=== PATIENT | male | born 1950 | race Caucasian/White ===

== ENCOUNTER 2020-07-28 12:27 | Day surgery (SDC) | payer OTHER ==
[~2020-07-28] VITALS: Ht 172.7 cm; Wt 96.2 kg
[~2020-07-28 12:27] MED LIST: ASPI325 PO; ENAL5 PO; GLIP5 PO; INSULANI SC; INSULANPEN; IRBE150; KETO10 PO; METF500 PO; METO25ER PO; OXYACE5T PO; OXYACE7.5T PO; PRAV10 PO; PROM25 PO; SILD50TA; TAMS.4ER PO
== END 2020-07-28 14:00 | disposition home or self-care (01) ==
LOC: ORSCSDS 12:27
PROVIDERS: Internal Medicine Gastroenterology
PROC: 0DBM8ZX Excision of Descending Colon, Via Natural or Artificial Opening Endoscopic, Diagnostic (ICD-10-PCS; principal; 2020-07-28 13:45)
DX: Z12.11 Encounter for screening for malignant neoplasm of colon (principal); Z86.010 Personal history of colon polyps; D12.4 Benign neoplasm of descending colon; K57.30 Diverticulosis of large intestine without perforation or abscess without bleeding; K64.8 Other hemorrhoids; I25.10 Atherosclerotic heart disease of native coronary artery without angina pectoris; I10 Essential (primary) hypertension; E11.9 Type 2 diabetes mellitus without complications; G47.33 Obstructive sleep apnea (adult) (pediatric); F17.210 Nicotine dependence, cigarettes, uncomplicated; Z79.84 Long term (current) use of oral hypoglycemic drugs; Z79.899 Other long term (current) drug therapy; Z79.82 Long term (current) use of aspirin
CPT/HCPCS: 82947; 88305; J2704; J7120

== ENCOUNTER 2021-12-26 09:06 | Day surgery (SDC) | payer OTHER ==
[~2021-12-26] VITALS: Ht 172.7 cm; Wt 93.5 kg
--- NOTE | 2021-12-26 09:54 | NUR ---
12/26/21 0954 Jacquelin Hawthorne AT 0946 PLEELMOET AT 0948
--- NOTE | 2021-12-26 11:06 | NUR ---
12/26/21 1106 CARLITO FRY PT IN SVT. INFORMED THAT WAS ALSO RHYTHM IN OR. RAN STRIP- STILL IN SVT. TAKES MED FOR THIS. INFORMED THAT NOTHING NEEDS TO BE DONE FOR THIS DR. PALOMO IS AWARE AND NOTHING NEEDED PER EFRAIN
== END 2021-12-26 11:21 | disposition home or self-care (01) ==
LOC: ORSCSDS 09:06
PROVIDERS: Ophthalmology
PROC: 08RK3JZ Replacement of Left Lens with Synthetic Substitute, Percutaneous Approach (ICD-10-PCS; principal; 2021-12-26 10:30)
DX: H25.12 Age-related nuclear cataract, left eye (principal); E11.9 Type 2 diabetes mellitus without complications; H18.512 Endothelial corneal dystrophy, left eye; J44.9 Chronic obstructive pulmonary disease, unspecified; I10 Essential (primary) hypertension; I25.2 Old myocardial infarction; Z79.82 Long term (current) use of aspirin; Z79.84 Long term (current) use of oral hypoglycemic drugs; Z79.4 Long term (current) use of insulin; Z79.899 Other long term (current) drug therapy
CPT/HCPCS: 82947; J2001; J2250; J3010; J3301; J7040; V2632

== ENCOUNTER 2022-03-16 16:37 | Inpatient (IN) | payer OTHER ==
[~2022-03-16] VITALS: Ht 172.7 cm; Wt 93.5 kg
[~2022-03-16 16:37] MED LIST changes: +ENAL10 PO; -ENAL5 PO; -INSULANPEN; +INSULANPEN SC; -PRAV10 PO; +PRAVASTATIN SOD10 MG PO
[2022-03-16 17:14] LABS: BASOPHILS ABSOLUTE AUTO 0.02 K/mm3 (0.00-0.23); BASOPHILS PERCENT AUTO 0 % (0-2); EOSINOPHILS ABSOLUTE AUTO 0.04 K/mm3 (0.00-0.68); EOSINOPHILS PERCENT AUTO 0 % (0-6); Hemoglobin 16.7 g/dL (13.5-17.5); IMMATURE GRAN ABSOLUTE AUTO 0.05 K/mm3 (0.00-0.10); IMMATURE GRAN PERCENT AUTO 1 % (0-1); LYMPHOCYTES ABSOLUTE AUTO 1.18 K/mm3 (0.84-5.20); LYMPHOCYTES PERCENT AUTO 13 % (21-46); MONOCYTES ABSOLUTE AUTO 1.47 K/mm3 (0.16-1.47); MONOCYTES PERCENT AUTO 16 % (4-13); Mean Corpuscular HGB 34.4 pg (26.0-34.0); Mean Corpuscular HGB Conc 34.1 g/dL (31.5-36.5); Mean Corpuscular Volume 101 fL (80-100); Mean Platelet Volume 8.3 fL (9.1-12.4); NEUTROPHILS ABSOLUTE AUTO 6.47 K/mm3 (1.96-9.15); NEUTROPHILS PERCENT AUTO 70 % (41-73); Platelet Count 243 K/mm3 (150-400); RDW Coefficient Variation 13.1 % (11.7-14.2); RDW Standard Deviation 48.9 fL (35.1-46.3); Red Blood Cell Count 4.86 M/mm3 (4.30-5.90); White Blood Cell Count 9.23 K/mm3 (4.00-11.30)
[2022-03-16 17:33] LABS: Albumin, Blood 3.2 g/dL (3.4-5.0); Albumin/Globulin Ratio 0.8 (0.8-1.8); Bilirubin, Total 0.4 mg/dL (0.1-1.0); Bun/Creatinine Ratio 25.9 (12.0-20.0); Creatinine, Blood 1.85 mg/dL (0.60-1.20); Globulin, Blood 4.1 g/dL (2.2-4.0); Potassium, Blood 4.2 mmol/L (3.5-5.5); Total Protein, Blood 7.3 g/dL (6.4-8.2)
[2022-03-16 18:13] LABS: Source, Urine Clean Catch
[2022-03-16 18:17] LABS: Appearance, Urine Clear (Clear); Bilirubin, Urine Neg (Neg); Blood, Urine 3+ (Neg); Glucose Qualitative, Urine 4+ (Neg); Ketones, Urine Neg (Neg); Leukocyte Esterase, Urine Neg (Neg); Nitrite, Urine Neg (Neg); Protein, Urine 2+ (Neg); Specific Gravity, Urine 1.015 (1.003-1.022); Urobilinogen, Urine NORM (Normal)
[2022-03-16 18:26] LABS: Color, Urine Pale Yellow (P-Yellow)
[2022-03-16 18:30] LABS: Hyaline Casts 0-2 /lpf (0-2)
[2022-03-16 18:31] LABS: Amorphous Light (0-Heavy); Bacteria Rare /hpf; Red Blood Cells, Urine 0-2 /hpf (0-2); Squamous Epithelial Cells Not Seen /hpf (Few); White Blood Cells, Urine 0-2 /hpf (0-5)
[2022-03-16] MEDS ORDERED: FARXIGA10 MG PO (18:44)
[2022-03-16] MEDS ORDERED: EZETIMIBE10 M6 PO (18:44)
[2022-03-16 20:12] LABS: Influenza B, PCR NEGATIVE (NEGATIVE); Resp Syncytial Virus, PCR NEGATIVE (NEGATIVE); SARS-Cov-2 (COVID-19) PCR, MMC NEGATIVE (NEGATIVE)
[2022-03-16 21:08] LABS: Influenza A, PCR POSITIVE (NEGATIVE)
--- NOTE | 2022-03-16 23:40 | NUR ---
PATIENT IS A NEW ADMIT FROM THE ED. AXOX 4 AND SBA TRANSFER FROM [facility] TO BED. ON 2L O2 NC AND RA BASELINE. SPOUSE PRESENT ON ADMIT TO HELP WITH MEDICATON LIST AND THAN LEFT FOR EVENING. SHE REPORTS WILL BE BACK IN AM. DENIES CHEST PAIN AND N/V. RT IN FOR BREATHING TX. PATIENT SKIN SUN BURNT FROM RECENT [place] TRIP WITH SPOUSE. ORIENTED TO ROOM AND CALL LIGHT SYSTEM. SBA TO BR. REPORTS WILL WATCH TV BEFORE TRYING TO SLEEP. NS STARTED AT 100 mL/HR. WCTM.
--- NOTE | 2022-03-17 04:03 | NUR ---
SHIFT SUMMARY PATIENT HAD NO ACUTE CHANGES. AXOX 4 AND SBA TO BR. ON 2L O2 NC AND RA BASELINE. REFUSED CPAP WHEN ASKED BY RT. RECEIVED BREATHING TX. PIV REMAINS INTACT. NS INFUSING AT 100 mL/HR. IV SOLU-MEDROL GIVEN PER EMAR. CBG 200 Q4 CHECK. DENIES PAIN AND N/V. DROPLET PRECAUTIONS FLU+. PATIENT REPORTS SUN BURN FROM RECENT TRIP TO [facility]. VSS/AFEBRILE. CALL LIGHT IN REACH. BED IN LOWEST POSITION. WILL CONTINUE TO MONITOR UNTIL DAY SHIFT NURSE ASSUMES CARE.
[2022-03-17 04:33] LABS: Hemoglobin 15.8 g/dL (13.5-17.5); Mean Corpuscular HGB Conc 33.6 g/dL (31.5-36.5); Mean Corpuscular Volume 101 fL (80-100); Mean Platelet Volume 8.5 fL (9.1-12.4); Platelet Count 219 K/mm3 (150-400); RDW Coefficient Variation 13.2 % (11.7-14.2); RDW Standard Deviation 49.4 fL (35.1-46.3); Red Blood Cell Count 4.65 M/mm3 (4.30-5.90); White Blood Cell Count 7.81 K/mm3 (4.00-11.30)
[2022-03-17 04:49] LABS: Bun/Creatinine Ratio 26.9 (12.0-20.0); Calcium, Blood 8.4 mg/dL (8.5-10.1); Creatinine, Blood 1.67 mg/dL (0.60-1.20); Magnesium, Blood 2.4 mg/dL (1.6-2.4); Potassium, Blood 4.9 mmol/L (3.5-5.5)
--- NOTE | 2022-03-17 17:10 | NUR ---
PT AOX4 AND COOPERATIVE OF CARE. NO DISTESS NOTED CONTINUES ON 2L NASAL CANULA. PT ABLE TO GET SHOWER TODAY WITH TO ASSIST. PT RESTING IN BED MOST OF THE DAY WILL CONTINUE TO MONITOR. CALL LIGHT WITHIN REACH.
--- NOTE | 2022-03-18 04:02 | NUR ---
SHIFT SUMMARY PATIENT HAD NO ACUTE CHANGES. AXOX 4 AND SBA TO BR. FLAT AFFECT. ON 2L O2 NC. SOB W/EXERTION. NOW USING CPAP AT NIGHT STATING 92% WITH 2L BLEED CONTINUOUS PULSE OXIMETRY. PIVS REMAIN INTACT. CBG 347. SCHEDULE IV SOLU-MEDROL. RT IN FOR BREATHING TX. REPORTED COUGH X ONE AND TUSSIONEX 5 mL GIVEN. VSS/AFEBRILE. DENIES CHEST PAIN AND N/V. CALL LIGHT IN REACH. BED IN LOWEST POSITION. WILL CONTINUE TO MONITOR UNTIL DAY SHIFT NURSE ASSUMES CARE.
--- NOTE | 2022-03-19 05:03 | NUR ---
SHIFT SUMMARY NOC PT A/O X 4 PLEASANT AND COOPERATIVE TO CARE. NO ACUTE CHANGES TO REPORT. PT ON 4L/NC WITH SPO2 > 92 %. PT HS CBG WAS 287 PT GIVEN INSULIN PE S/S. PT RECEIVED BREATHING TREATMENT FROM RT. PT HAD A FEW EPISODES OF COUGHING WHICH RAISED HR TO 130'S BUT QUICKLY RETURNED TO BASELINE. PT IS CURRENTLY IN RESTING IN BED WITH CPAP WITH 2L BLEED IN SPO2 > 92% NOTED, BED IN LOWEST POSITION, AND CALL LIGHT WITHIN REACH. PT EXPECTED TO DC TODAY. WCTM.
[2022-03-19 05:26] LABS: BASOPHILS ABSOLUTE AUTO 0.02 K/mm3 (0.00-0.23); BASOPHILS PERCENT AUTO 0 % (0-2); EOSINOPHILS PERCENT AUTO 0 % (0-6); Hematocrit 44.8 % (37.0-53.0); Hemoglobin 15.2 g/dL (13.5-17.5); IMMATURE GRAN ABSOLUTE AUTO 0.16 K/mm3 (0.00-0.10); IMMATURE GRAN PERCENT AUTO 1 % (0-1); LYMPHOCYTES ABSOLUTE AUTO 0.99 K/mm3 (0.84-5.20); LYMPHOCYTES PERCENT AUTO 8 % (21-46); MONOCYTES ABSOLUTE AUTO 0.78 K/mm3 (0.16-1.47); MONOCYTES PERCENT AUTO 6 % (4-13); Mean Corpuscular HGB 34.2 pg (26.0-34.0); Mean Corpuscular HGB Conc 33.9 g/dL (31.5-36.5); Mean Corpuscular Volume 101 fL (80-100); Mean Platelet Volume 8.5 fL (9.1-12.4); NEUTROPHILS ABSOLUTE AUTO 10.31 K/mm3 (1.96-9.15); NEUTROPHILS PERCENT AUTO 84 % (41-73); Platelet Count 270 K/mm3 (150-400); RDW Coefficient Variation 12.9 % (11.7-14.2); RDW Standard Deviation 48.3 fL (35.1-46.3); Red Blood Cell Count 4.45 M/mm3 (4.30-5.90); White Blood Cell Count 12.26 K/mm3 (4.00-11.30)
[2022-03-19 05:28] LABS: Bun/Creatinine Ratio 24.4 (12.0-20.0); Calcium, Blood 8.2 mg/dL (8.5-10.1); Creatinine, Blood 1.64 mg/dL (0.60-1.20); Potassium, Blood 5.2 mmol/L (3.5-5.5)
[2022-03-19] MEDS ORDERED: AMLO5 PO (11:28)
[2022-03-19] MEDS ORDERED: OSEL75CA PO (11:29)
[2022-03-19] MEDS ORDERED: PRED20 PO (11:30)
[2022-03-19] MEDS ORDERED: ALBU90OI INH (11:31)
[2022-03-19] MEDS ORDERED: Aspir 8181 MG PO (11:31)
[2022-03-19] MEDS ORDERED: IPRAT-ALBUT 0.5-3 ML INH (11:33)
[2022-03-19] MEDS ORDERED: SYMBICORT 160-4.6 GM INH (11:33)
--- NOTE | 2022-03-19 12:48 | NUR ---
DISCHARGE SUMMARY DISCHARGE, FOLLOWUP, AND MEDICATION INSTRUCTIONS GIVEN TO PATIENT. PT VOICED COMPLETE UNDERSTANDING AND HAS NO QUESTIONS AT THIS TIME. IVS REMOVED WITH CATHETER TIP INTACT. PT WAITING FOR RIDE, WILL CONTINUE TO MONITOR. CALL LIGHT WITHIN REACH.
== END 2022-03-19 13:21 | disposition home or self-care (01) | DRG 193 ==
LOC: ER 16:37 → MEDS 16:38
PROVIDERS: Internal Medicine; Nurse Practitioner Acute Care; Student in an Organized Health Care Education/Training Program; ADMIT Internal Medicine
PROC: 5A09357 Assistance with Respiratory Ventilation, Less than 24 Consecutive Hours, Continuous Positive Airway Pressure (ICD-10-PCS; principal; 2022-03-17)
DX: J10.1 Influenza due to other identified influenza virus with other respiratory manifestations (principal); G92.8 Other toxic encephalopathy; J96.01 Acute respiratory failure with hypoxia; J96.02 Acute respiratory failure with hypercapnia; J44.1 Chronic obstructive pulmonary disease with (acute) exacerbation; N17.9 Acute kidney failure, unspecified; F17.210 Nicotine dependence, cigarettes, uncomplicated; E86.0 Dehydration; R94.31 Abnormal electrocardiogram [ECG] [EKG]; I45.10 Unspecified right bundle-branch block; E11.649 Type 2 diabetes mellitus with hypoglycemia without coma; N18.30 Chronic kidney disease, stage 3 unspecified; E11.22 Type 2 diabetes mellitus with diabetic chronic kidney disease; I25.10 Atherosclerotic heart disease of native coronary artery without angina pectoris; G47.33 Obstructive sleep apnea (adult) (pediatric); E78.5 Hyperlipidemia, unspecified; I12.9 Hypertensive chronic kidney disease with stage 1 through stage 4 chronic kidney disease, or unspecified chronic kidney disease; Z20.822 Contact with and (suspected) exposure to COVID-19; Z99.81 Dependence on supplemental oxygen; Z79.84 Long term (current) use of oral hypoglycemic drugs; Z79.82 Long term (current) use of aspirin; Z79.4 Long term (current) use of insulin; I25.2 Old myocardial infarction; Z79.899 Other long term (current) drug therapy; Z87.442 Personal history of urinary calculi; Z98.890 Other specified postprocedural states; Z95.1 Presence of aortocoronary bypass graft
CPT/HCPCS: 0241U; 36415; 71045; 80048; 80053; 81001; 82947; 83735; 85025; 85027; 93005; 93010; 94640; 94644; 94645; 94660; 94664; 94760; 94761; 94762; 96365; 96372; 96375; 96376; 99285-25; A9270; G0378; J1650; J1815; J2930; J3475; J7030; J7512; J7799

== ENCOUNTER 2023-02-01 15:14 | Inpatient (IN) | payer OTHER ==
[~2023-02-01] VITALS: Ht 172.7 cm; Wt 97.5 kg
[~2023-02-01 15:14] MED LIST changes: +ALBU90OI INH; +AMLO5 PO; +Aspir 8181 MG PO; +EZETIMIBE10 M6 PO; +FARXIGA10 MG PO; +IPRAT-ALBUT 0.5-3 ML INH; +OSEL75CA PO; +PRED20 PO; +SYMBICORT 160-4.6 GM INH
[2023-02-01 15:37] LABS: BASOPHILS ABSOLUTE AUTO 0.02 K/mm3 (0.00-0.23); BASOPHILS PERCENT AUTO 0 % (0-2); EOSINOPHILS ABSOLUTE AUTO 0.01 K/mm3 (0.00-0.68); EOSINOPHILS PERCENT AUTO 0 % (0-6); Hematocrit 52.7 % (37.0-53.0); Hemoglobin 17.6 g/dL (13.5-17.5); IMMATURE GRAN ABSOLUTE AUTO 0.03 K/mm3 (0.00-0.10); IMMATURE GRAN PERCENT AUTO 0 % (0-1); LYMPHOCYTES ABSOLUTE AUTO 1.42 K/mm3 (0.84-5.20); LYMPHOCYTES PERCENT AUTO 17 % (21-46); MONOCYTES ABSOLUTE AUTO 0.87 K/mm3 (0.16-1.47); MONOCYTES PERCENT AUTO 11 % (4-13); Mean Corpuscular HGB Conc 33.4 g/dL (31.5-36.5); Mean Corpuscular Volume 102 fL (80-100); Mean Platelet Volume 8.5 fL (9.1-12.4); NEUTROPHILS ABSOLUTE AUTO 5.87 K/mm3 (1.96-9.15); NEUTROPHILS PERCENT AUTO 71 % (41-73); Platelet Count 265 K/mm3 (150-400); RDW Coefficient Variation 13.4 % (11.7-14.2); RDW Standard Deviation 50.4 fL (35.1-46.3); Red Blood Cell Count 5.17 M/mm3 (4.30-5.90); White Blood Cell Count 8.22 K/mm3 (4.00-11.30)
[2023-02-01] MEDS ORDERED: GLIP5 (15:37)
[2023-02-01 15:55] LABS: Albumin, Blood 3.9 g/dL (3.4-5.0); Albumin/Globulin Ratio 1.1 (0.8-1.8); Bilirubin, Total 0.9 mg/dL (0.1-1.0); Bun/Creatinine Ratio 22.9 (12.0-20.0); Calcium, Blood 8.8 mg/dL (8.5-10.1); Creatinine, Blood 1.44 mg/dL (0.60-1.20); Globulin, Blood 3.6 g/dL (2.2-4.0); Potassium, Blood 4.2 mmol/L (3.5-5.5); Total Protein, Blood 7.5 g/dL (6.4-8.2)
[2023-02-01 16:19] LABS: Base Excess Venous 3.4 mmol/L; Bicarbonate Venous 24.9 mmol/L (24.0-30.0); PCO2 Venous 62.5 mmHg (38-42); pH Blood Venous 7.29 (7.34-7.37)
[2023-02-01 16:55] LABS: Influenza A, PCR NEGATIVE (NEGATIVE); Influenza B, PCR NEGATIVE (NEGATIVE); Resp Syncytial Virus, PCR NEGATIVE (NEGATIVE); SARS-Cov-2 (COVID-19) PCR, MMC NEGATIVE (NEGATIVE)
[2023-02-01 19:53] LABS: Base Excess Venous 6.5 mmol/L; Bicarbonate Venous 25.9 mmol/L (24.0-30.0); PCO2 Venous 71.2 mmHg (38-42)
[2023-02-01 19:54] LABS: pH Blood Venous 7.28 (7.34-7.37)
[2023-02-01] MEDS ORDERED: METO100ER PO (20:22)
[2023-02-01] MEDS ORDERED: EZET10 PO (20:23)
[2023-02-01 20:41] VITALS: BP 129/79
[2023-02-01 23:37] LABS: PCO2 Venous 65.5 mmHg (38-42); pH Blood Venous 7.29 (7.34-7.37)
[2023-02-01 23:38] LABS: Base Excess Venous 4.6 mmol/L; Bicarbonate Venous 26.2 mmol/L (24.0-30.0)
[2023-02-02 05:46] LABS: BASOPHILS ABSOLUTE AUTO 0.01 K/mm3 (0.00-0.23); BASOPHILS PERCENT AUTO 0 % (0-2); EOSINOPHILS ABSOLUTE AUTO 0.02 K/mm3 (0.00-0.68); EOSINOPHILS PERCENT AUTO 0 % (0-6); Hematocrit 47.9 % (37.0-53.0); Hemoglobin 15.7 g/dL (13.5-17.5); IMMATURE GRAN ABSOLUTE AUTO 0.01 K/mm3 (0.00-0.10); IMMATURE GRAN PERCENT AUTO 0 % (0-1); LYMPHOCYTES ABSOLUTE AUTO 1.16 K/mm3 (0.84-5.20); LYMPHOCYTES PERCENT AUTO 20 % (21-46); MONOCYTES ABSOLUTE AUTO 0.93 K/mm3 (0.16-1.47); MONOCYTES PERCENT AUTO 16 % (4-13); Mean Corpuscular HGB 34.1 pg (26.0-34.0); Mean Corpuscular HGB Conc 32.8 g/dL (31.5-36.5); Mean Corpuscular Volume 104 fL (80-100); Mean Platelet Volume 8.8 fL (9.1-12.4); NEUTROPHILS ABSOLUTE AUTO 3.71 K/mm3 (1.96-9.15); NEUTROPHILS PERCENT AUTO 64 % (41-73); Platelet Count 242 K/mm3 (150-400); RDW Coefficient Variation 13.6 % (11.7-14.2); RDW Standard Deviation 51.4 fL (35.1-46.3); Red Blood Cell Count 4.61 M/mm3 (4.30-5.90); White Blood Cell Count 5.84 K/mm3 (4.00-11.30)
[2023-02-02 06:10] LABS: Magnesium, Blood 1.9 mg/dL (1.6-2.4)
--- NOTE | 2023-02-02 06:22 | NUR ---
SUMMARY- PT ARRIVED TO ROOM IN NO DISTRESS. PT AMBULATORY WITH SOME SOB W/ EXERTION. PT HAS BEEN SLEEPING WITH CPAP DURING THE NIGHT. PT SPO2 > 90%. PT HAS BEEN VOIDING WELL. PT HAS BEEN ABLE TO SLEEP THIS SHIFT. CALL LIGHT IN REACH.
[2023-02-02 06:28] LABS: Alanine Aminotransfer (ALT/SGP 31 U/L (12-78); Albumin, Blood 3.3 g/dL (3.4-5.0); Albumin/Globulin Ratio 1.1 (0.8-1.8); Alk Phos 102 U/L (50-136); Anion Gap 4 mmol/L (6-16); Aspartate Aminotrans (AST/SGOT 23 U/L (12-37); Bilirubin, Total 0.7 mg/dL (0.1-1.0); Blood Urea Nitrogen 34 mg/dL (8-24); Bun/Creatinine Ratio 19.9 (12.0-20.0); CO2, Blood 31 mmol/L (21-32); Calcium, Blood 8.3 mg/dL (8.5-10.1); Chloride, Blood 105 mmol/L (98-108); Cholesterol 103 mg/dL (50-200); Creatinine, Blood 1.71 mg/dL (0.60-1.20); Globulin, Blood 3.1 g/dL (2.2-4.0); Glomerular Filtration Rate 42 (60-); Glucose, Blood 89 mg/dL (70-99); Potassium, Blood 4.1 mmol/L (3.5-5.5); Sodium, Blood 140 mmol/L (136-145); Total Protein, Blood 6.4 g/dL (6.4-8.2); Triglycerides 99 mg/dL (30-160)
[2023-02-02 07:38] VITALS: BP 139/74
[2023-02-02 13:06] LABS: Base Excess Venous 6.7 mmol/L; Bicarbonate Venous 27.1 mmol/L (24.0-30.0); PCO2 Venous 72.2 mmHg (38-42)
[2023-02-02 13:07] LABS: pH Blood Venous 7.28 (7.34-7.37)
--- NOTE | 2023-02-02 13:20 | NUR ---
CRITICAL PH RECIEVED IN VBG. CALL TO DR HERNANDEZ AND RECIEVED NEW ORDERS. CALL TO RT WITH NEW ORDERS
[2023-02-02 15:37] VITALS: BP 118/66
[2023-02-02 17:54] LABS: Base Excess Venous 8.3 mmol/L; Bicarbonate Venous 27.4 mmol/L (24.0-30.0); PCO2 Venous 76.7 mmHg (38-42)
[2023-02-02 17:55] LABS: pH Blood Venous 7.27 (7.34-7.37)
--- NOTE | 2023-02-02 18:10 | NUR ---
CALL FOR CRITICAL VALUE PH 7.27 AT 1756, DR HERNANDEZ NOTIFIED, ORDER FOR RT TO ADJUST PRESSURES OR IF NOT SUCCESSFUL, TRANSFER TO PCU AND RECHECK VBG AT 2330. DR HERNANDEZ WILL PUT ORDER IN FOR VBG. CALL PLACED BY ARBORIST REPRESENTATIVE TO RT NABEEL REGARDING PRESSURE ADJUSTMENTS, CO2 AND PH AT 1806. PATIENT CURRENTLY NOT IN ANY DISTRESS, DENIES ANY SYMPTOMS.
[2023-02-02 20:15] VITALS: BP 127/70
[2023-02-02 23:59] LABS: Base Excess Venous 7.5 mmol/L; Bicarbonate Venous 28.4 mmol/L (24.0-30.0); PCO2 Venous 67.2 mmHg (38-42); pH Blood Venous 7.31 (7.34-7.37)
[2023-02-03 05:26] VITALS: BP 145/83
[2023-02-03 05:43] LABS: Bun/Creatinine Ratio 20.4 (12.0-20.0); Calcium, Blood 8.2 mg/dL (8.5-10.1); Creatinine, Blood 1.57 mg/dL (0.60-1.20); Potassium, Blood 3.6 mmol/L (3.5-5.5)
--- NOTE | 2023-02-03 06:08 | NUR ---
SHIFT SUMMARY PT REMAINS A&O X4, BUT APPEARS TO BE WITHDRAWN OR DOWN AFFECT IS FLAT AND RESPONSES ARE FLAT WELL. VSS T/O SHIFT; PT WORE BIPAP WITH SETTINGS 16/8, WITH 4 LPM 02 BLEED IN FOR THE ENTIRE NOC SHIFT. PT TOLERATE THE MASK WELL. 0000 VBG DID SHOW SOME IMPROVEMENT, REPEAT VBG AT 0500. PT DENIES CP/PRESSURE, DIZZINESS, N/V. PT USING URINAL INDEPENDENTLY AT BEDSIDE. OTHERWISE, NO ACUTE CHANGES AND PT RESTED WELL THROUGHOUT THE SHIFT. CALL LIGHT IN REACH. WILL UPDATE ONCOMING RN
[2023-02-03 07:40] VITALS: BP 152/79
[2023-02-03 11:13] LABS: PCO2 Venous 74.4 mmHg (38-42); pH Blood Venous 7.31 (7.34-7.37)
[2023-02-03 11:14] LABS: Base Excess Venous 11.3 mmol/L; Bicarbonate Venous 30.4 mmol/L (24.0-30.0)
--- NOTE | 2023-02-03 11:18 | NUR ---
VBG as resulted. CO2 74.4. Pt sitting up side of bed awake and alert. Resp even nonlabored. Dr. Nava informed. Resp to reapply bipap.
[2023-02-03 17:00] VITALS: BP 138/81
--- NOTE | 2023-02-03 17:29 | NUR ---
SHIFT SUMMARY Pt remains A&)x3 this shift. VSS. Bipap on this shift with the exception of meals. Resp even nonlabored. No acute distress noted. Repeat VBGs in am. Voiding per urinal. Family at bedside.
[2023-02-03 19:33] VITALS: BP 134/73
--- NOTE | 2023-02-04 02:22 | NUR ---
SHIFT SUMMARY PT AWAKE DURING SHIFT REPORT, WITH BIPAP ON AND AT BS. BIPAP HAS REMAINED ON ENTIRE SHIFT TO PRESENT. PT LOOSENED BRIEFLY TO TAKE HS MED AND IMMEDIATELY RETIGHTENED. PT UP TO EOB TO USE URINAL NEEDED, LEAVING BIPAP ON. RESTING QUIETLY WITH EYES CLOSED SINCE EARLY EVENING. CALL LT IN REACH. ABLE TO MAKE NEEDS KNOWN.
[2023-02-04 04:59] VITALS: BP 146/81
[2023-02-04 05:14] LABS: Bicarbonate Venous 33.1 mmol/L (24.0-30.0); PCO2 Venous 56.8 mmHg (38-42); pH Blood Venous 7.42 (7.34-7.37)
[2023-02-04 05:45] LABS: BASOPHILS ABSOLUTE AUTO 0.02 K/mm3 (0.00-0.23); BASOPHILS PERCENT AUTO 0 % (0-2); EOSINOPHILS ABSOLUTE AUTO 0.09 K/mm3 (0.00-0.68); EOSINOPHILS PERCENT AUTO 2 % (0-6); Hematocrit 47.8 % (37.0-53.0); Hemoglobin 15.7 g/dL (13.5-17.5); IMMATURE GRAN ABSOLUTE AUTO 0.02 K/mm3 (0.00-0.10); IMMATURE GRAN PERCENT AUTO 0 % (0-1); LYMPHOCYTES PERCENT AUTO 23 % (21-46); MONOCYTES ABSOLUTE AUTO 1.11 K/mm3 (0.16-1.47); MONOCYTES PERCENT AUTO 20 % (4-13); Mean Corpuscular HGB 33.7 pg (26.0-34.0); Mean Corpuscular HGB Conc 32.8 g/dL (31.5-36.5); Mean Corpuscular Volume 103 fL (80-100); Mean Platelet Volume 8.7 fL (9.1-12.4); NEUTROPHILS ABSOLUTE AUTO 3.01 K/mm3 (1.96-9.15); NEUTROPHILS PERCENT AUTO 54 % (41-73); Platelet Count 215 K/mm3 (150-400); RDW Coefficient Variation 13.2 % (11.7-14.2); RDW Standard Deviation 50.1 fL (35.1-46.3); Red Blood Cell Count 4.66 M/mm3 (4.30-5.90); White Blood Cell Count 5.55 K/mm3 (4.00-11.30)
[2023-02-04 06:03] LABS: Bun/Creatinine Ratio 16.9 (12.0-20.0); Calcium, Blood 8.4 mg/dL (8.5-10.1); Creatinine, Blood 1.72 mg/dL (0.60-1.20); Potassium, Blood 3.6 mmol/L (3.5-5.5)
[2023-02-04 07:25] VITALS: BP 143/76
[2023-02-04 15:48] VITALS: BP 143/86
--- NOTE | 2023-02-04 17:14 | NUR ---
SHIFT SUMMARY: Pt remains A&Ox3 this shift. Denies pain. VSS. Resp even nonlabored on cpap. Nasal cannula with meals. Lung sounds with diminished bases. BLE edema noted. Encouraged to elevate BLE. Voiding per urinal. Tolerating meals. No c/o. Will continue to monitor.
[2023-02-04 20:49] VITALS: BP 134/68
[2023-02-05 01:56] VITALS: BP 151/73
[2023-02-05 06:23] LABS: Albumin, Blood 3.3 g/dL (3.4-5.0); Anion Gap 2 mmol/L (6-16); Blood Urea Nitrogen 27 mg/dL (8-24); Bun/Creatinine Ratio 19.3 (12.0-20.0); CO2, Blood 39 mmol/L (21-32); Calcium, Blood 8.9 mg/dL (8.5-10.1); Chloride, Blood 99 mmol/L (98-108); Glomerular Filtration Rate 53 (60-); Glucose, Blood 114 mg/dL (70-99); Phosphorus, Blood 3.4 mg/dL (2.5-4.9); Potassium, Blood 3.5 mmol/L (3.5-5.5); Sodium, Blood 140 mmol/L (136-145)
--- NOTE | 2023-02-05 06:24 | NUR ---
SHIFT SUMMARY: PT IS ADMITTED FOR ACUTE RESPIRATORY FAILURE AND IS A FULL CODE. IS ALERT AND ABLE TO MAKE NEEDS KNOWN. HAS BEEN A 1P STBY FOR ADLs DENIES PAIN OR DISCOMFORT WHEN ASKED. IV TO LEFT FOREARM IS PATENT WITH A DRESSING THAT IS CDI. HAS BEEN WEARING A BIPAP THROUGH SHIFT.
[2023-02-05 07:47] VITALS: BP 138/76
[2023-02-05] MEDS ORDERED: FURO20 PO (13:23)
[2023-02-05] MEDS ORDERED: LOSA25 PO (13:26)
[2023-02-05] MEDS ORDERED: METO25ER PO (13:27)
== END 2023-02-05 14:02 | disposition home or self-care (01) | DRG 291 ==
LOC: ER 15:14 → MEDS 19:46
PROVIDERS: Emergency Medicine; Family Medicine; ADMIT Student in an Organized Health Care Education/Training Program
PROC: 5A09357 Assistance with Respiratory Ventilation, Less than 24 Consecutive Hours, Continuous Positive Airway Pressure (ICD-10-PCS; principal; 2023-02-02)
DX: I13.0 Hypertensive heart and chronic kidney disease with heart failure and stage 1 through stage 4 chronic kidney disease, or unspecified chronic kidney disease (principal); I50.31 Acute diastolic (congestive) heart failure; J96.01 Acute respiratory failure with hypoxia; J96.02 Acute respiratory failure with hypercapnia; J98.11 Atelectasis; G47.33 Obstructive sleep apnea (adult) (pediatric); J44.9 Chronic obstructive pulmonary disease, unspecified; E11.22 Type 2 diabetes mellitus with diabetic chronic kidney disease; N18.31 Chronic kidney disease, stage 3a; I25.10 Atherosclerotic heart disease of native coronary artery without angina pectoris; E78.5 Hyperlipidemia, unspecified; D75.89 Other specified diseases of blood and blood-forming organs; Z11.52 Encounter for screening for COVID-19; I25.2 Old myocardial infarction; Z79.51 Long term (current) use of inhaled steroids; Z79.52 Long term (current) use of systemic steroids; Z79.84 Long term (current) use of oral hypoglycemic drugs; Z79.82 Long term (current) use of aspirin; Z87.891 Personal history of nicotine dependence
CPT/HCPCS: 0241U; 36415; 71045; 80048; 80053; 80069; 82465; 82607; 82746; 82803; 82947; 83735; 83880; 84443; 84478; 84484; 85025; 93005; 93010; 94640; 94660; 94664; 94761; 94762; 96374; 99285-25; A9270; C8929; J1650; J1815; J1940; Q9957